=== PATIENT | female | born 1985 | race Caucasian/White ===

== ENCOUNTER 2018-02-19 18:11 | Emergency (ER) | payer OTHER ==
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
[2018-02-19] MEDS ORDERED: OXYCODONE/APAP 5/325 TAB PO ONE (18:17)
[2018-02-19] MEDS ORDERED: OXYCODONE/APAP 5/325MG PREPACK#4 BTL TAKEHOME ONE (18:17)
[2018-02-19 19:09] VITALS: BP 140/82
== END 2018-02-19 19:09 | disposition home or self-care (01) ==
LOC: EDBD 18:11
DX: S16.1XXA Strain of muscle, fascia and tendon at neck level, initial encounter (principal); S46.811A Strain of other muscles, fascia and tendons at shoulder and upper arm level, right arm, initial encounter; V89.2XXA Person injured in unspecified motor-vehicle accident, traffic, initial encounter; Y92.410 Unspecified street and highway as the place of occurrence of the external cause; Y99.8 Other external cause status